=== PATIENT | male | born 1995 | race Caucasian/White ===

== ENCOUNTER 2018-05-18 23:50 | Emergency (ER) | payer OTHER ==
[~2018-05-18] VITALS: Ht 91.4 cm; Wt 41.0 kg
[~2018-05-18 23:50] MED LIST: NORCO 5/3251 TABLET PO; PROAIR HFA8.5 GM IH; ZYRTEC10 M2 PO
[2018-05-19 01:45] LABS: SOURCE URINE
[2018-05-19 01:51] LABS: APPEARANCE CLEAR ((CLEAR)); BILIRUBIN NEGATIVE; BLOOD NEGATIVE; COLOR STRAW ((YELLOW)); GLUCOSE (STRIP) NEGATIVE; KETONES NEGATIVE; LEUKOCYTES NEGATIVE; NITRITE NEGATIVE; PROTEIN (STRIP) NEGATIVE; SPECIFIC GRAVITY 1.011 (1.000-1.030); UROBILINOGEN 0.2 MG/DL (0.2-1.0)
[2018-05-19 03:01] VITALS: BP 156/78
[2018-05-19 19:46] LABS: CHLAMYDIA TRACHOMATIS NEGATIVE; NEISSERIA GONORRHOEAE NEGATIVE
== END 2018-05-19 03:02 | disposition home or self-care (01) ==
LOC: EME 23:50
DX: S30.22XA Contusion of scrotum and testes, initial encounter (principal); W22.8XXA Striking against or struck by other objects, initial encounter; Z11.3 Encounter for screening for infections with a predominantly sexual mode of transmission; Z87.891 Personal history of nicotine dependence
CPT/HCPCS: 76870; 81003; 87491; 87591; 99281; 99284